=== PATIENT | female | born 1960 | race Caucasian/White ===

== ENCOUNTER 2016-08-05 08:55 | Outpatient (CLI) ==
[2016-08-05 14:33] LABS: ALBUMIN 3.7 g/dL (3.4-5.0); ALBUMIN/GLOBULIN RATIO 0.93; ANION GAP 12.8; BILIRUBIN,TOTAL 2.37 mg/dL (0.00-1.20); BUN/CREATININE RATIO 8.42; CALCIUM 9.7 mg/dL (8.2-10.2); CHOL/HDL RATIO 3.4 (4.5-5.5); CREATININE 0.95 mg/dL (0.60-1.30); POTASSIUM 3.8 mmol/L (3.5-5.10); TOTAL PROTEIN 7.7 g/dL (6.4-8.2)
== END 2016-08-05 08:56 | disposition home or self-care (01) ==
LOC: LAB 08:55
PROVIDERS: ATTEND Nurse Practitioner Family
DX: R79.89 Other specified abnormal findings of blood chemistry (principal); E78.5 Hyperlipidemia, unspecified; I10 Essential (primary) hypertension
CPT/HCPCS: 36415; 80053; 80061; 84443

== ENCOUNTER 2016-09-22 15:07 | Inpatient (IN) ==
[2016-09-22] MEDS ORDERED: SODIUM CHLORIDE 1,000 ML IV STA (15:33)
[2016-09-22] MEDS ORDERED: ZOFRAN 4 MG/2 ML IVP STA (15:33)
--- NOTE | 2016-09-22 15:36 | ED.PDOC ---
General ED Provider: Dr. ROSA VERA Chief Complaint: Nausea/Vomiting Stated Complaint: Been voming and diarrhea for couple days, not able to keep anything down. Time Seen by Physician: 15:34 Mode of Arrival: Walk-In Information Source: Patient Primary Care Provider: ALYSSA KRISHNA Nursing and Triage Documentation Reviewed and Agree: Yes GI Complaint Exam - Vomiting/Diarrhea Complaint/Exam Symptoms Are: Still present Episodes of Vomiting over last 24 Hours: 5 Episodes of Diarrhea Over Last 24 Hours: 6 Initial Severity: Moderate Current Severity: Moderate Character of Vomiting: Reports: Non-bilious Character of Diarrhea: Reports: Watery Aggravating: Reports: Food, Liquids, Position, Movement Alleviating: Reports: None Associated Signs and Symptoms: Reports: Light-headedness. Denies: Dizziness, Melena, Hematemesis, Fever, Abdominal pain, Cramping Non-GI Risk Factors: Reports: None Surgical Obstruction Risk Factors: Reports: None Related Surgical History: Reports: None Abdominal Findings: Absent: Pulsatile mass, Abdominal distention, Unequal femoral pulses Differential Diagnoses: Dehydration, Bacterial Gastroenteritis, UTI Review of Systems - Review Of Systems Constitutional: Reports: Malaise, Weakness Eyes: Reports: No symptoms Ears, Nose, Mouth, Throat: Reports: No symptoms Respiratory: Reports: No symptoms Cardiac: Reports: No symptoms GI: Reports: Diarrhea, Nausea, Vomiting : Reports: No symptoms Musculoskeletal: Reports: No symptoms Skin: Reports: No symptoms Neurological: Reports: No symptoms Endocrine: Reports: No symptoms Hematologic/Lymphatic: Reports: No symptoms All Other Systems: Reviewed and Negative Past Medical History - Past Medical History Previously Healthy: No Endocrine: Reports: Dyslipidemia Cardiovascular: Reports: Hypertension Respiratory: Reports: None Hematological: Reports: None Gastrointestinal: Reports: None Genitourinary: Reports: None Neuro/Psych: Reports: None Musculoskeletal: Reports: None Cancer: Reports: None Last Menstrual Period: N/A - Surgical History General Surgical History: Reports: Tubal ligation, Appendectomy, Cholecystectomy , Tonsillectomy - Family History Family History: Reports: None - Social History Smoking Status: Current every day smoker, Light tobacco smoker Smoking Cessation Counseling Time: > 3 min - 10 min Hx Substance Use: No Alcohol Screening: None - Immunizations Tetanus Shot up to Date: No Physical Exam - Physical Exam Appearance: Ill-appearing, Thin Ill-appearing: Moderate Eyes: BEBETO, EOMI, Conjunctiva clear ENT: Ears normal, Nose normal, Oropharynx normal Respiratory: Airway patent, Breath sounds clear, Breath sounds equal, Respirations nonlabored Cardiovascular: RRR, Pulses normal, No rub, No murmur GI/: Soft, Nontender, No masses, Bowel sounds normal, No Organomegaly Musculoskeletal: Normal strength, ROM intact, No edema, No calf tenderness Skin: Warm, Dry, Normal color Neurological: Sensation intact, Motor intact, Reflexes intact, Cranial nerves intact, Alert, Oriented Psychiatric: Affect appropriate, Mood appropriate Interpretation - Radiology Interpretation Radiology Interpretation By: Radiologist Radiology Results: Negative Exam Interpreted: CT Scan Physician Notification - Case Discussed Time of Notification: 17:06 (Dr Hannon) Critical Care Note - Critical Care Note Total Time (mins): 0 Course - Course Hematology/Chemistry: 09/22/16 15:30 09/22/16 15:30 Orders, Labs, Meds: Lab Review 09/22/16 15:30 WBC 5.12 RBC 5.60 H Hgb 16.1 H Hct 46.5 MCV 83.0 MCH 28.8 MCHC 34.6 RDW Coeff of Natalie 13.0 Plt Count 173 Immature Gran % (Auto) 0.4 Neut % (Auto) 53.7 Lymph % (Auto) 35.7 [place] % (Auto) 9.8 Eos % (Auto) 0.0 Baso % (Auto) 0.4 Immature Gran # (Auto) 0.0 Neut # 2.8 Lymph # 1.8 [place] # 0.5 Eos # 0.0 Baso # 0.0 Sodium 130 L Potassium 3.8 Chloride 99 Carbon Dioxide 18 L Anion Gap 16.8 BUN 22 H Creatinine 2.04 H Estimated GFR (MDRD) 25.00 BUN/Creatinine Ratio 10.78 Glucose 119 H Calcium 8.8 Total Bilirubin 1.09 AST 45 H ALT 23 Alkaline Phosphatase 85 Total Creatine Kinase 473 CK-MB (CK-2) 6.7 H* CK-MB (CK-2) % 1.71285 Troponin I 0.0440 Total Protein 7.8 Albumin 3.6 Globulin 4.2 Albumin/Globulin Ratio 0.86 Amylase 78 Lipase 91 H Orders Category Date Time Status ED IV/MEDIPORT/POWERPORT .ONCE EMERGENCY 09/22/16 15:33 Active AMYLASE Stat LAB 09/22/16 15:30 Completed CBC W/ AUTO DIFF Stat LAB 09/22/16 15:30 Completed COMPREHENSIVE METABOLIC PANEL Stat LAB 09/22/16 15:30 Completed CREATINE KINASE Stat LAB 09/22/16 15:30 Completed LIPASE Stat LAB 09/22/16 15:30 Completed TROPONIN I Stat LAB 09/22/16 15:30 Completed URINALYSIS C & S IF INDICATED Stat LAB 09/22/16 15:33 Uncollected 0.9 % Sodium Chloride [Saline Flush] MEDS 09/22/16 15:33 Ordered 1 syr IVF PRN PRN Ondansetron HCl/Pf [Zofran 4 mg/2 ml] MEDS 09/22/16 15:33 Discontinued 4 mg IVP ONCE STA Sodium Chloride 0.9% [Sodium Chloride] 1,000 ml MEDS 09/22/16 15:33 Discontinued IV BOLUS Sodium Chloride 0.9% [Sodium Chloride] 500 ml MEDS 09/22/16 16:36 Active IV 125 mls/hr CT ABDOMEN/PELVIS WO CONTRAST Stat RADS 09/22/16 15:33 Completed Medications Generic Name Dose Route Start Last Admin Trade Name Freq PRN Reason Stop Dose Admin Sodium Chloride 500 mls @ 125 mls/hr 09/22/16 16:36 09/22/16 16:39 Sodium Chloride IV 09/22/16 20:35 125 mls/hr .Q4H STA Administration Sodium Chloride 1 syr 09/22/16 15:33 09/22/16 15:41 Saline Flush IVF 1 syr PRN PRN Administration To flush IV Discontinued Medications Generic Name Dose Route Start Last Admin Trade Name Freq PRN Reason Stop Dose Admin Sodium Chloride 1,000 mls @ 1,000 mls/hr 09/22/16 15:33 09/22/16 15:41 Sodium Chloride IV 09/22/16 16:32 1,000 mls/hr BOLUS STA Administration Ondansetron HCl 4 mg 09/22/16 15:33 09/22/16 15:45 Zofran 4 Mg/2 Ml IVP 09/22/16 15:34 4 mg ONCE STA Administration Vital Signs: Temp Pulse Resp BP Pulse Ox 09/22/16 15:09 97.5 F L 74 18 77/54 L 96 Departure - Departure Time of Disposition: 17:00 Disposition: ADMITTED INPATIENT Discharge Problem: Gastroenteritis, Dehydration Instructions: Dehydration (ED), Gastroenteritis (ED) Condition: Stable Pt referred to PMD for follow-up: Yes Allergies/Adverse Reactions: Allergies codeine Allergy (Severe, Verified 09/22/16 15:16) Problems with breathing Home Medications: Ambulatory Orders Calcium Carbonate [Calcium] 500 mg PO DAILY 02/01/16 Disposition Discussed With: Patient, Family
[2016-09-22 15:44] LABS: BASOPHILS % (AUTO) 0.4 % (0.0-3.0); HEMATOCRIT 46.5 % (37.0-47.0); HEMOGLOBIN 16.1 g/dl (12.0-16.0); IMMATURE GRANULOCYTE % (AUTO) 0.4 % (0.0-5.0); LYMPHOCYTES # (AUTO) 1.8 K/uL (0.60-3.4); LYMPHOCYTES % (AUTO) 35.7 (10.0-50.0); MEAN CORPUSCULAR HEMOGLOBIN 28.8 pg (27.0-31.0); MEAN CORPUSCULAR HGB CONC 34.6 (31.8-35.4); MONOCYTES # (AUTO) 0.5 K/uL (0.4-2.0); MONOCYTES % (AUTO) 9.8 (0-10); NEUTROPHILS # (AUTO) 2.8 K/ul (2.0-6.9); NEUTROPHILS % (AUTO) 53.7; PLATELET COUNT 173 10^3/uL (140-440); WHITE BLOOD COUNT 5.12 K/ul (4.6-10.2)
--- NOTE | 2016-09-22 16:15 | CT ---
EXAM: CT of the abdomen pelvis without contrast History: Diarrhea. Comparison: None available. Technique: Multiplanar CT images through the abdomen pelvis were obtained without the administratio n of IV contrast Findings: Lung bases are free of consolidation. No acute osseous abnormalities. Chronic compressio n deformity of L1. Status post cholecystectomy. Atherosclerotic vascular calcifications. Calcified granulomas within the spleen and liver. There is a right medial diaphragmatic hernia with a loop of nondistended parisi sverse colon. No renal stones and no hydronephrosis. The appendix is not seen. Fluid is seen within the right side of the colon. Prominent submucosal fat deposition seen throughout the colon. Colon ic diverticulosis. No bowel obstruction. No peripancreatic inflammation. Adrenal glands are unrem arkable. No free air. No ascites. Bladder is not well distended. Uterus is small. No perirectal inflammation. Impression: 1. Prominent submucosal fat deposition seen throughout the colon suggesting prior episodes of infla mmatory bowel disease. There is no CT evidence for active colitis. No bowel obstruction. Fluid is seen within the right side of the colon. 2. Right medial diaphragmatic hernia containing a loop of nondilated transverse colon. 3. Colonic diverticulosis.
[2016-09-22 16:34] LABS: ALBUMIN 3.6 g/dL (3.4-5.0); ALBUMIN/GLOBULIN RATIO 0.86; ANION GAP 16.8; BILIRUBIN,TOTAL 1.09 mg/dL (0.00-1.20); BUN/CREATININE RATIO 10.78; CALCIUM 8.8 mg/dL (8.2-10.2); CREATININE 2.04 mg/dL (0.60-1.30); POTASSIUM 3.8 mmol/L (3.5-5.10); TOTAL PROTEIN 7.8 g/dL (6.4-8.2); TROPONIN I 0.044 ng/ml (0.0000-0.4000)
[2016-09-22 16:36] LABS: CREATINE KINASE MB 6.7 ng/ml (0.0-3.6)
[2016-09-22] MEDS ORDERED: SODIUM CHLORIDE 500 ML IV STA (16:36)
[2016-09-22] MEDS ORDERED: FLAGYL 500 MG/100 ML 500 MG in PREMIX 100 ML NS 1 BAG IV SCH (17:30)
[2016-09-22] MEDS ORDERED: SODIUM CHLORIDE 1,000 ML IV SCH (17:30)
[2016-09-22 17:46] VITALS: BMI 27.4
[2016-09-22] MEDS ORDERED: FLAGYL 500 MG/100 ML 100 ML IV ONE (17:54)
[2016-09-22] MEDS: ZOFRAN 4 MG/2 ML IVP SCH ×2 (17:56→23:03)
[2016-09-22] MEDS ORDERED: INFUVITE ADULT IV ONE (18:58)
[2016-09-22] MEDS ORDERED: INFUVITE ADULT 10 ML in D5%-NS-KCL 20 MEQ/L IV SOL 1,000 ML IV SCH ×4 (19:00)
[2016-09-22] MEDS: INFUVITE ADULT 10 ML in D5%-NS-KCL 20 MEQ/L IV SOL 1,000 ML IV SCH (19:03)
[2016-09-22] MEDS ORDERED: PROAIR HFA IH SCH (21:00)
[2016-09-22] MEDS ORDERED: SYMBICORT 160-4.5 MCG INHALER IH SCH (21:00)
[2016-09-22 21:06] LABS: BILIRUBIN,URINE Negative (NEGATIVE); KETONES,URINE Negative (NEGATIVE); LEUKOCYTE ESTERASE ,URINE Negative (NEGATIVE); NITRITE,URINE Negative (NEGATIVE); PH,URINE 5.5 (5-9); PROTEIN,URINE Negative (NEGATIVE); URINE, BLOOD Trace-lysed (NEGATIVE)
[2016-09-22 21:11] LABS: ADD URINE MICROSCOPIC YES
[2016-09-22 21:12] LABS: BACTERIA,URINE 1+ (NOT PRESENT)
[2016-09-22] MEDS: PROAIR HFA IH SCH (21:52)
[2016-09-22] MEDS: SYMBICORT 160-4.5 MCG INHALER IH SCH (21:57)
[2016-09-22] MEDS ORDERED: ZOFRAN 4 MG/2 ML ONE (23:00)
[2016-09-22 23:32] LABS: TROPONIN I 0.022 ng/ml (0.0000-0.4000)
[2016-09-22 23:33] LABS: CREATINE KINASE MB 4.6 ng/ml (0.0-3.6)
[2016-09-23] MEDS ORDERED: INFUVITE ADULT IV ONE ×4 (00:52→23:15)
[2016-09-23] MEDS: INFUVITE ADULT 10 ML in D5%-NS-KCL 20 MEQ/L IV SOL 1,000 ML IV SCH ×4 (01:33→23:17)
[2016-09-23] MEDS ORDERED: ZOFRAN 4 MG/2 ML ONE (05:31)
[2016-09-23] MEDS: ZOFRAN 4 MG/2 ML IVP SCH ×4 (05:34→23:10)
[2016-09-23 07:45] LABS: ALBUMIN 2.8 g/dL (3.4-5.0); ALBUMIN/GLOBULIN RATIO 1.04; ANION GAP 9.8; BILIRUBIN,TOTAL 0.61 mg/dL (0.00-1.20); BUN/CREATININE RATIO 10.21; CALCIUM 7.8 mg/dL (8.2-10.2); CREATININE 1.37 mg/dL (0.60-1.30); POTASSIUM 3.8 mmol/L (3.5-5.10); TOTAL PROTEIN 5.5 g/dL (6.4-8.2); TROPONIN I 0.015 ng/ml (0.0000-0.4000)
[2016-09-23 07:49] LABS: BASOPHILS % (AUTO) 0.3 % (0.0-3.0); EOSINOPHILS % (AUTO) 0.3 % (0.0-7.0); HEMATOCRIT 36.9 % (37.0-47.0); HEMOGLOBIN 12.7 g/dl (12.0-16.0); IMMATURE GRANULOCYTE % (AUTO) 0.3 % (0.0-5.0); LYMPHOCYTES # (AUTO) 1.5 K/uL (0.60-3.4); LYMPHOCYTES % (AUTO) 44.9 (10.0-50.0); MEAN CORPUSCULAR HEMOGLOBIN 29.1 pg (27.0-31.0); MEAN CORPUSCULAR HGB CONC 34.4 (31.8-35.4); MEAN CORPUSCULAR VOLUME 84.4 fl (81.0-99.0); MONOCYTES # (AUTO) 0.4 K/uL (0.4-2.0); MONOCYTES % (AUTO) 12.6 (0-10); NEUTROPHILS # (AUTO) 1.4 K/ul (2.0-6.9); NEUTROPHILS % (AUTO) 41.6; PLATELET COUNT 104 10^3/uL (140-440); RED BLOOD COUNT 4.37 10^6/ul (4.20-5.40); WHITE BLOOD COUNT 3.41 K/ul (4.6-10.2)
[2016-09-23 07:59] LABS: CREATINE KINASE MB 3.8 ng/ml (0.0-3.6)
[2016-09-23] MEDS: PROAIR HFA IH SCH ×4 (08:35→20:30)
[2016-09-23] MEDS: SYMBICORT 160-4.5 MCG INHALER IH SCH ×2 (08:36→20:30)
[2016-09-23] MEDS ORDERED: NON-FORMULARY MEDICATION (Atorvastatin Calcium [Lipitor] 40 MG) PO SCH ×22 (09:00)
[2016-09-23] MEDS ORDERED: SPIRIVA IH SCH (09:00)
[2016-09-23] MEDS ORDERED: NON-FORMULARY MEDICATION (Calcium Carbonate [Calcium] 500 MG) PO SCH (09:00)
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
[2016-09-24 04:32] LABS: HEMATOCRIT 33.7 % (37.0-47.0); HEMOGLOBIN 11.1 g/dl (12.0-16.0); MEAN CORPUSCULAR HEMOGLOBIN 28.8 pg (27.0-31.0); MEAN CORPUSCULAR HGB CONC 32.9 (31.8-35.4); MEAN CORPUSCULAR VOLUME 87.3 fl (81.0-99.0); PLATELET COUNT 110 10^3/uL (140-440); RED BLOOD COUNT 3.86 10^6/ul (4.20-5.40)
[2016-09-24 04:43] LABS: ANISOCYTOSIS NOT PRESENT (NOT PRESENT)
[2016-09-24 04:58] LABS: ALBUMIN 2.5 g/dL (3.4-5.0); ALBUMIN/GLOBULIN RATIO 0.96; ANION GAP 8.8; BILIRUBIN,TOTAL 0.46 mg/dL (0.00-1.20); BUN/CREATININE RATIO 4.59; CALCIUM 7.3 mg/dL (8.2-10.2); CREATININE 0.87 mg/dL (0.60-1.30); POTASSIUM 3.8 mmol/L (3.5-5.10); TOTAL PROTEIN 5.1 g/dL (6.4-8.2)
[2016-09-24] MEDS: ZOFRAN 4 MG/2 ML IVP SCH ×3 (05:18→20:19)
[2016-09-24] MEDS ORDERED: INFUVITE ADULT IV ONE ×3 (05:50→15:28)
[2016-09-24] MEDS: INFUVITE ADULT 10 ML in D5%-NS-KCL 20 MEQ/L IV SOL 1,000 ML IV SCH ×2 (07:46→15:30)
[2016-09-24] MEDS: SYMBICORT 160-4.5 MCG INHALER IH SCH ×2 (09:43→20:20)
[2016-09-24] MEDS: PROAIR HFA IH SCH ×4 (09:43→20:20)
--- NOTE | 2016-09-24 11:50 | PN ---
DATE OF VISIT: 09/23/16 56 year old female who looks comfortable while lying in bed and not dyspneic, nor tachypneic with a good color. She had not had any vomiting and no diarrhea since admission. VITAL SIGNS: At 10 a.m. showed a temperature of 98, pulse 72, blood pressure 164/60, respiratory rate 20, oxygen saturation 94 at 2 liters of nasal. We will continue the IV and see what happens. Her platelet count came down to 104 from 173 and the reason is not clear to me. This patient is not receiving any antibiotics. She denies any pain or any chest pain or other problems. Urine culture with no growth. CONDITION: Improved and stable. MTDD
--- NOTE | 2016-09-24 12:50 | PN ---
DATE OF VISIT: 09/23/16 The patient is alert and feeling better and no further diarrhea. VITAL SIGNS: Temperature at 10 a.m. was 98, pulse 72, blood pressure 164/60, respiratory rate 20, oxygen saturation 94 at 2 liters. LUNGS: Diminished breath sounds, but no rales or wheezing. HEART: Audible and regular with good tones. ABDOMEN: Unremarkable. Labs showed slightly lower white cell at 3,410 from 5,120 yesterday. Hemoglobin now down to 12.7 from 16.1. This patient had diarrhea and vomiting for the last four to five days. Her platelet count was down from 173 to 104. This patient was not given any medication, except for a small amount of Flagyl. She is receiving IV with multivitamin component. Electrolytes with chlorides did climb up to 110 from 99. The BUN is down to 14 from 22 and creatinine down to 1.37 from 2.04. E GFR is now 40 from 25. Blood sugar is slightly high and calcium is down to 7.8 from 8.8. AST is now normal at 29 from 45 and CKMB remained slightly elevated at 3.8 today from 4.6 yesterday. Troponin remained normal. Lipase slightly elevated yesterday and Procalcitonin is normal at 0.36. I do believe that this patient probably has chronic kidney disease probably secondary to the hypertension. Her BUN is now normal, but the creatinine and GFR is still below acceptable levels. MTDD
[2016-09-25] MEDS: ZOFRAN 4 MG/2 ML IVP SCH ×4 (00:30→17:41)
[2016-09-25 04:37] LABS: BASOPHILS % (AUTO) 0.4 % (0.0-3.0); EOSINOPHILS # (AUTO) 0.1 K/ul (0.0-0.7); EOSINOPHILS % (AUTO) 1.6 % (0.0-7.0); HEMATOCRIT 35.7 % (37.0-47.0); HEMOGLOBIN 12.5 g/dl (12.0-16.0); IMMATURE GRANULOCYTE % (AUTO) 0.2 % (0.0-5.0); LYMPHOCYTES # (AUTO) 2.7 K/uL (0.60-3.4); LYMPHOCYTES % (AUTO) 55.5 (10.0-50.0); MEAN CORPUSCULAR HEMOGLOBIN 29.6 pg (27.0-31.0); MEAN CORPUSCULAR VOLUME 84.6 fl (81.0-99.0); MONOCYTES # (AUTO) 0.3 K/uL (0.4-2.0); MONOCYTES % (AUTO) 6.5 (0-10); NEUTROPHILS # (AUTO) 1.8 K/ul (2.0-6.9); NEUTROPHILS % (AUTO) 35.8; PLATELET COUNT 136 10^3/uL (140-440); RED BLOOD COUNT 4.22 10^6/ul (4.20-5.40); WHITE BLOOD COUNT 4.92 K/ul (4.6-10.2)
[2016-09-25 05:03] LABS: ALANINE AMINOTRANSFERASE 23 U/L (12-78); ALBUMIN 2.8 g/dL (3.4-5.0); ALBUMIN/GLOBULIN RATIO 0.85; ALKALINE PHOSPHATASE 85 U/L (42-98); ANION GAP 10.1; ASPARTATE AMINO TRANSFERASE 29 U/L (15-37); BILIRUBIN,TOTAL 0.79 mg/dL (0.00-1.20); BLOOD UREA NITROGEN < 2 mg/dL (7-18); BUN/CREATININE RATIO 2.53; CALCIUM 8.2 mg/dL (8.2-10.2); CARBON DIOXIDE 22 mmol/L (21-32); CHLORIDE 111 mmol/L (98-107); CREATININE 0.79 mg/dL (0.60-1.30); GLUCOSE 88 mg/dL (70-110); POTASSIUM 4.1 mmol/L (3.5-5.10); SODIUM 139 mmol/L (136-145); TOTAL PROTEIN 6.1 g/dL (6.4-8.2)
[2016-09-25] MEDS: SYMBICORT 160-4.5 MCG INHALER IH SCH ×2 (09:26→20:19)
[2016-09-25] MEDS: PROAIR HFA IH SCH ×4 (09:26→20:19)
[2016-09-26 05:35] LABS: HEMATOCRIT 37.5 % (37.0-47.0); HEMOGLOBIN 12.5 g/dl (12.0-16.0); MEAN CORPUSCULAR HGB CONC 33.3 (31.8-35.4); PLATELET COUNT 147 10^3/uL (140-440); RED BLOOD COUNT 4.31 10^6/ul (4.20-5.40); WHITE BLOOD COUNT 4.44 K/ul (4.6-10.2)
[2016-09-26 05:48] LABS: ALBUMIN 2.8 g/dL (3.4-5.0); ALBUMIN/GLOBULIN RATIO 0.85; ANION GAP 9.3; BILIRUBIN,TOTAL 0.92 mg/dL (0.00-1.20); BUN/CREATININE RATIO 2.46; CALCIUM 8.5 mg/dL (8.2-10.2); CREATININE 0.81 mg/dL (0.60-1.30); POTASSIUM 4.3 mmol/L (3.5-5.10); TOTAL PROTEIN 6.1 g/dL (6.4-8.2)
[2016-09-26 06:29] LABS: ANISOCYTOSIS NOT PRESENT (NOT PRESENT)
[2016-09-26 10:14] VITALS: BP 151/89; TEMP 98.2
[2016-09-26] MEDS: PROAIR HFA IH SCH (10:26)
[2016-09-26] MEDS: SYMBICORT 160-4.5 MCG INHALER IH SCH (10:27)
--- NOTE | 2016-10-01 11:11 | PN ---
DATE OF VISIT: 09/24/16 SUBJECTIVE: The patient is feeling better today and was able to tolerate the full liquid diet with other foods added to it. The full liquid is low fat. She has some nausea but no vomiting. She had two bowel movements today which were liquid. This is first time that we were obtain any specimen for stool culture, ova and parasites, Chlamydia and Yersinia. Also requested Campylobacter. She denies any abdominal pain and her vital signs at 6:00 in the afternoon 09/24/16 showed a temperature of 98.2, pulse 76, blood pressure 146/82, respiratory rate 18 and oxygen saturation 98% at room air. The labs showed: WBC 3.80, hgb 11.1, hct 33.7. On admission this was 16.1 and 46.5 respectively. Her BUN is down to 4 from 22, creatinine is now 0.87 and EGF is 68. Calcium is slightly lower but total protein is low. The Hepatitis C is 11, positive. The patient admits that she had Hepatitis C and she told me that she was treated. I tried to define that very well but the patient a little bit invasive with the Hepatitis C. She just told me that she had been treated and she doesn't have that problem now. The treatment has been several years ago has a lower success rate then it is now. We need to get a better history about that and ask also where the treatment occurred. She is treated it appears to be Hepatitic C virus nucleic acid amplification is not ordered at this time. I need to discuss this with the lab since it had been a while since she had history of Hepatitis C and she was treated. Probably should have RNA, liver nucleic acid but TCR for the Hepatitis C virus to know the number of copies that she still has in her system. Clostridium difficile DNA negative, Negative for Campylobacter antigen negative and negative for Shiga toxin 1 and 2. Urine culture no growth. MTDD
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
--- NOTE | 2016-11-11 14:59 | PN ---
DATE OF VISIT: 09/25/16 The patient, today, is alert and oriented times four. She is feeling better. She had not had any diarrhea and no vomiting. She did consume about 60% of her meals. VITAL SIGNS: At 5:46 p.m. on 09/25/2016 showed a temperature of 97.4, pulse 65 , blood pressure 164/80, respiratory rate 20, oxygen saturation 100% at room. LUNGS: Clear to auscultation on both sides. No wheezing. HEART: Normal sinus rhythm. ABDOMEN: No remarkable tenderness. LOWER EXTREMITIES: The patient has no tenderness in the calf muscles. CONDITION: Improved and satisfactory. MTDD
== END 2016-09-26 12:46 | disposition home or self-care (01) | DRG 392 ==
LOC: ED 15:07 → MEDSURG B 17:16
PROVIDERS: ADMIT General Practice; ATTEND General Practice
DX: A08.4 Viral intestinal infection, unspecified (principal); K52.9 Noninfective gastroenteritis and colitis, unspecified; E86.0 Dehydration; R76.0 Raised antibody titer; R79.89 Other specified abnormal findings of blood chemistry; E78.5 Hyperlipidemia, unspecified; F17.200 Nicotine dependence, unspecified, uncomplicated; J44.9 Chronic obstructive pulmonary disease, unspecified; Z86.19 Personal history of other infectious and parasitic diseases; Z86.79 Personal history of other diseases of the circulatory system; Z79.899 Other long term (current) drug therapy
CPT/HCPCS: 36415; 80053; 80074; 81001; 82150; 82550; 82553; 83690; 84145; 84484; 85007; 85025; 86710; 87015; 87045; 87086; 87177; 87493; 87522; 87899; 93005; 93010; 96361; 96374; 99225; 99232; 99239; 99284

== ENCOUNTER 2017-06-02 13:12 | Outpatient (CLI) ==
[2017-06-02 13:46] LABS: BASOPHILS % (AUTO) 0.6 % (0.0-3.0); EOSINOPHILS # (AUTO) 0.3 K/ul (0.0-0.7); EOSINOPHILS % (AUTO) 3.8 % (0.0-7.0); HEMOGLOBIN 14.2 g/dl (12.0-16.0); IMMATURE GRANULOCYTE % (AUTO) 0.2 % (0.0-5.0); LYMPHOCYTES # (AUTO) 2.3 K/uL (0.60-3.4); LYMPHOCYTES % (AUTO) 34.6 (10.0-50.0); MEAN CORPUSCULAR HEMOGLOBIN 30.1 pg (27.0-31.0); MEAN CORPUSCULAR HGB CONC 33.8 (31.8-35.4); MEAN CORPUSCULAR VOLUME 89.2 fl (81.0-99.0); MONOCYTES # (AUTO) 0.4 K/uL (0.4-2.0); MONOCYTES % (AUTO) 5.3 (0-10); NEUTROPHILS # (AUTO) 3.7 K/ul (2.0-6.9); NEUTROPHILS % (AUTO) 55.5; PLATELET COUNT 219 10^3/uL (140-440); RED BLOOD COUNT 4.71 10^6/ul (4.20-5.40); WHITE BLOOD COUNT 6.65 K/ul (4.6-10.2)
[2017-06-02 14:24] LABS: ALBUMIN 3.4 g/dL (3.4-5.0); ALBUMIN/GLOBULIN RATIO 0.92; ANION GAP 13.8; BILIRUBIN,TOTAL 0.69 mg/dL (0.00-1.20); BUN/CREATININE RATIO 6.09; CALCIUM 9.4 mg/dL (8.2-10.2); CHOL/HDL RATIO 3.8 (4.5-5.5); CREATININE 0.82 mg/dL (0.60-1.30); POTASSIUM 3.8 mmol/L (3.5-5.10); TOTAL PROTEIN 7.1 g/dL (6.4-8.2)
== END 2017-06-02 13:13 | disposition home or self-care (01) ==
LOC: LAB 13:12
PROVIDERS: ATTEND Nurse Practitioner Family
DX: E78.5 Hyperlipidemia, unspecified (principal); I10 Essential (primary) hypertension; M54.9 Dorsalgia, unspecified; Z72.0 Tobacco use
CPT/HCPCS: 36415; 80053; 80061; 84443; 85025

== ENCOUNTER 2018-01-07 15:38 | Outpatient (CLI) | END 2018-01-07 15:39 | disposition home or self-care (01) | LOC: RHC-LAB 15:38 | PROVIDERS: ATTEND Nurse Practitioner Family | DX: I10 Essential (primary) hypertension (principal) | CPT/HCPCS: 36415; 80053; 80061; 85025 ==

== ENCOUNTER 2018-01-21 08:56 | Outpatient (CLI) ==
--- NOTE | 2018-01-23 08:58 | MAMMO ---
EXAM: Digital screening mammogram with tomosynthesis HISTORY: Screening COMPARISON: 03/05/2016 FINDINGS: Digital MLO and CC views of the right and left breast were performed. Tomosynthesis was pe rformed. Computer aided detection was utilized. The breast tissue is heterogeneously dense, which c ould obscure small masses. There is no evidence for mass, asymmetry, distortion, or suspicious calci fications in either breast. IMPRESSION: 1. No evidence of malignancy in the right or left breast. 2. Annual screening mammogram is recommended in one year. BIRADS category 1, negative examination
== END 2018-01-21 08:57 | disposition home or self-care (01) ==
LOC: RAD 08:56
PROVIDERS: ATTEND Nurse Practitioner Family
DX: Z12.31 Encounter for screening mammogram for malignant neoplasm of breast (principal)
CPT/HCPCS: 77067

== ENCOUNTER 2019-05-07 11:16 | Observation (INO) ==
[2019-05-07 11:28] VITALS: BMI 30.4
[2019-05-07] MEDS ORDERED: VASOTEC IV IVP STA (12:19)
--- NOTE | 2019-05-07 13:12 | DI ---
EXAM: Chest one view HISTORY: Cough COMPARISON: 04/06/2015 TECHNIQUE: Single view of the chest was performed FINDINGS: The lungs are clear. There is no pleural effusion or pneumothorax. The heart is normal i n size. The mediastinal contour is normal, noting atherosclerosis. There are no acute abnormalities of the bones. Large bowel containing diaphragmatic hernia in the right thorax. IMPRESSION: 1. No acute cardiopulmonary process. 2. Large right-sided fall containing diaphragmatic hernia.
--- NOTE | 2019-05-07 13:36 | CT ---
EXAM: CT Head HISTORY: Dizziness and headache COMPARISON: None TECHNIQUE: CT head performed without contrast FINDINGS: There is no mass effect, midline shift, or intracranial hemmorhage. Mccarty white differenti ation is preserved. There is no extra-axial collection. The ventricles, sulci, and basal cisterns a re patent and symmetric. There is chronic ischemic disease of the white matter and cerebral volume l oss. Indeterminate lacunar infarction left thalamus with non-acute features favored. There is no de pressed calvarial fracture. The mastoid air cells are clear. Mild mucosal thickening right maxillary sinus. There are intracranial atherosclerotic calcifications. IMPRESSION: 1. No acute intracranial hemorrhage, midline shift, or mass effect. 2. Age indeterminate lacunar type infarction left thalamus with non-acute features favored. Finding can be correlate with MRI. Chronic ischemic disease of the white matter and cerebral volume loss. 3. Sinusitis
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
[2019-05-07] MEDS ORDERED: TOBREX 0.3% EACHEYE SCH (14:30)
[2019-05-07] MEDS: SODIUM CHLORIDE 1,000 ML IV SCH (15:20)
[2019-05-07] MEDS ORDERED: TOBREX 0.3% RIGHTEYE SCH (16:30)
[2019-05-07] MEDS ORDERED: PROAIR HFA IH SCH (17:00)
[2019-05-07] MEDS: NICODERM 21 MG TD SCH (18:00)
[2019-05-07] MEDS: ANTIVERT PO SCH ×2 (18:00→20:22)
[2019-05-07] MEDS: LOPRESSOR PO SCH (20:21)
[2019-05-07] MEDS: COZAAR PO SCH (20:22)
[2019-05-07] MEDS ORDERED: ADVAIR 250-50 DISKUS IH SCH (21:00)
[2019-05-07] MEDS ORDERED: COZAAR PO SCH ×2 (21:00)
[2019-05-07] MEDS ORDERED: FLUTICASONE PROPION SALMETEROL IH SCH (21:00)
[2019-05-08] MEDS: SODIUM CHLORIDE 1,000 ML IV SCH (04:18)
[2019-05-08] MEDS: FLONASE NAS SCH (08:42)
[2019-05-08] MEDS: NICODERM 21 MG TD SCH (08:42)
[2019-05-08] MEDS: COZAAR PO SCH ×2 (08:43→20:15)
[2019-05-08] MEDS: LIPITOR PO SCH (08:43)
[2019-05-08] MEDS: LOPRESSOR PO SCH ×2 (08:43→20:15)
[2019-05-08] MEDS: ANTIVERT PO SCH ×3 (08:43→20:15)
[2019-05-08] MEDS ORDERED: CALCIUM CARBONATE 500 MG PO SCH (09:00)
[2019-05-08] MEDS ORDERED: CALCIUM 500 + VIT D 200 MG TABLET PO SCH (09:00)
[2019-05-08] MEDS ORDERED: LOVENOX SUBCUT SCH (17:00)
[2019-05-08] MEDS: NORVASC PO SCH (18:15)
[2019-05-09] MEDS: ANTIVERT PO SCH ×4 (08:31→21:19)
[2019-05-09] MEDS: LOPRESSOR PO SCH ×2 (08:31→21:19)
[2019-05-09] MEDS: LIPITOR PO SCH (08:31)
[2019-05-09] MEDS: NORVASC PO SCH (08:31)
[2019-05-09] MEDS: NICODERM 21 MG TD SCH (08:32)
[2019-05-09] MEDS: COZAAR PO SCH ×2 (08:32→21:17)
[2019-05-09] MEDS: FLONASE NAS SCH (08:32)
[2019-05-09] MEDS: LOVENOX SUBCUT SCH (08:33)
[2019-05-09] MEDS: HYDROCHLOROTHIAZIDE PO SCH (13:06)
[2019-05-10] MEDS: FLONASE NAS SCH (08:09)
[2019-05-10] MEDS: COZAAR PO SCH (08:10)
[2019-05-10] MEDS: NORVASC PO SCH (08:10)
[2019-05-10] MEDS: LIPITOR PO SCH (08:10)
[2019-05-10] MEDS: ANTIVERT PO SCH ×3 (08:10→17:56)
[2019-05-10] MEDS: NICODERM 21 MG TD SCH (08:11)
[2019-05-10] MEDS: LOPRESSOR PO SCH (08:11)
[2019-05-10] MEDS: HYDROCHLOROTHIAZIDE PO SCH (08:11)
[2019-05-10] MEDS: LOVENOX SUBCUT SCH (08:14)
--- NOTE | 2019-05-10 10:20 | US ---
EXAM: ULTRASOUND CAROTID DUPLEX, BILATERAL HISTORY: Dizziness FINDINGS: Valdovinos-scale ultrasound, color Doppler and spectral analysis was performed. Velocities are in meters per second. By valdovinos scale and color Doppler imaging, there were regions of heterogeneous plaque formation identi fied within the carotid bulbs and internal carotid arteries. These regions of plaque appeared to rem ain less than 50% vessel diameter. RIGHT: External carotid artery peak systolic velocity: 0.66 Common carotid artery peak systolic velocity/end diastolic velocity: 0.65/0.12 Internal carotid artery peak systolic velocity: 0.84 ICA/CCA peak systolic velocity ratio: 1.3 ICA end diastolic velocity: 0.23 LEFT: External carotid artery peak systolic velocity: 1.22 Common carotid artery peak systolic velocity/end diastolic velocity: 0.85/0.2 Internal carotid artery peak systolic velocity: 0.94 ICA/CCA peak systolic velocity ratio: 1.1 ICA end diastolic velocity: 0.28 The right and left vertebral arteries were antegrade. IMPRESSION: 1. By valdovinos scale and color Doppler imaging, there were regions of heterogeneous plaque formation carol ntified within the carotid bulbs and internal carotid arteries. These regions of plaque appeared to remain less than 50% vessel diameter. 2. Internal carotid artery peak systolic velocities and ICA/CCA peak systolic velocity ratios indica te no hemodynamically significant stenosis bilaterally. 3. Both vertebral arteries were antegrade.
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
[2019-05-10 13:45] VITALS: BP 152/88; TEMP 98.9
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
--- NOTE | 2019-05-18 12:47 | PN ---
DATE OF SERVICE: 05/08/19 SUBJECTIVE: The patient is alert, cheerful, not dyspneic or tachypneic without any chest pain, abdominal pain and no dysphagia. She claims that her dizziness is much better. She is now able to navigate from bed to bathroom without any difficulty. She had been initiated on Antivert yesterday. Neck has no bruit. Heart is audible and regular with good tones. Lungs clear. Abdomen unremarkable. Lower extremities no tenderness. Blood pressure at 2:30 p.m. today 196/88. The patient's medication is unadequate to control the hypertension so Amlodipine will be added at 5 mg daily. She may need Hydrochlorothiazide but at this time Hydrochlorothiazide will not be added to the regimen. MTDD
--- NOTE | 2019-05-18 13:11 | PN ---
DATE OF SERVICE: 05/09/19 SUBJECTIVE: The patient is alert, responsive and oriented. She did tell me that her dizziness has worsened today than yesterday. She did not have any headache or visual disturbances. Medication was reviewed since her blood pressure was elevated. Amlodipine was added to the regimen yesterday. Her blood pressure today was 176/92. I did see her about 12:20 in the afternoon today. Pulse was 67, respirations 18, temperature 98.1, oxygen saturation 96 on room air. Her appetite is good. Medications are Losartan 50 mg twice a day, Lipitor 40 mg daily. She was on Lopressor before 25 mg twice a day but reduced to 12.5 because of the bradycardia twice a day plus Nicoderm CQ 21 mg daily. Chlorothiazide was added 12.5 mg today. Lovenox was initiated yesterday. The Antivert was increased to four times a day from three times a day. Heart is normal sinus rhythm. Lungs are clear. The patient denies any chest pain. Denies any headaches or visual disturbances. No abdominal pain. Carotid studies were scheduled. I still believe the patient's problem is acute labrynthitis. Carotid studies were scheduled. I still believe that the patient's problem is acute labrynthitis. Will see if her condition improves tomorrow. SAMARA
== END 2019-05-10 17:25 | disposition home or self-care (01) ==
LOC: MEDSURG B 11:16 → ED 11:16 → MEDSURG B 14:55
PROVIDERS: ADMIT General Practice; ATTEND General Practice
DX: I10 Essential (primary) hypertension; Z72.0 Tobacco use; B18.2 Chronic viral hepatitis C; H83.09 Labyrinthitis, unspecified ear; J44.9 Chronic obstructive pulmonary disease, unspecified; R27.0 Ataxia, unspecified; R42 Dizziness and giddiness